=== PATIENT | female | born 1950 | race Caucasian/White ===

== ENCOUNTER 2023-09-30 13:00 | Outpatient (CLI) | payer OTHER ==
[2023-09-30 14:29] LABS: #Eosinphils 0.1 10x3/uL (0.0-0.5); #Monocytes 0.6 10x3/uL (0.0-1.1); #Neutrophils 3.8 10x3/uL (1.5-8.4); %Basophils 0.6 % (0.0-2.0); %Eosinophils 1.9 % (0.0-6.0); %Lymphocytes 32.5 % (18.0-47.0); %Monocytes 9.1 % (0.0-10.0); %Neutrophils 55.6 % (40.0-75.0); Hematocrit 37.5 % (34.9-44.5); Hemoglobin 12.2 g/dL (12.0-15.5); Mean Corpuscular HGB CONC 32.5 g/dL (32.0-36.0); Mean Corpuscular Hemoglobin 29.4 pg (27.0-33.0); Mean Corpuscular Volume 90.4 fl (81.6-98.3); Mean Platelet Volume 10.4 fl (7.4-10.4); Platelet Count 240 10x3/uL (150-450); RBC Distribution Width 14.5 % (11.5-14.5); Red Blood Cell (RBC) Count 4.15 10x6/uL (3.90-5.03); White Blood Cell (WBC) Count 6.7 10x3/uL (3.5-10.5)
[2023-09-30 14:39] LABS: ALT (SGPT) 14 U/L (8-55); AST (SGOT) 20 U/L (5-34); Albumin 4.4 g/dL (3.4-4.8); Alkaline Phosphatase 69 U/L (40-110); Anion Gap 11 mmol/L (10-20); BUN (Urea Nitrogen) 18 mg/dL (9.8-20.1); Bilirubin, Total 0.3 mg/dL (0.2-1.2); Calc. Creatinine Clearance 0 mL/min (70-130); Calcium 8.9 mg/dL (7.8-10.44); Carbon Dioxide 25 mmol/L (23-31); Chloride 108 mmol/L (98-107); Estimated GFR 85; Globulin 2.5 g/dL (2.4-3.5); Glucose 122 mg/dL (83-110); Potassium 3.6 mmol/L (3.5-5.1); Protein, Total 6.9 g/dL (5.8-8.1); Sodium 140 mmol/L (136-145)
== END 2023-09-30 13:01 | disposition home or self-care (01) ==
LOC: LABBT 13:00
PROVIDERS: ATTEND Surgery
DX: Z01.818 Encounter for other preprocedural examination (principal); K21.9 Gastro-esophageal reflux disease without esophagitis; K44.9 Diaphragmatic hernia without obstruction or gangrene
CPT/HCPCS: 80053; 85025; 93005; 93010

== ENCOUNTER 2023-10-28 10:28 | Inpatient (IN) | payer OTHER ==
[2023-09-30 13:56] VITALS: BMI 20.5
[2023-10-28] MEDS ORDERED: Bupivacaine 0.25% HCL 30 ML VIAL ONE (13:08)
[2023-10-28] MEDS ORDERED: EPINEPHrine 1 MG/ML VIAL ONE (13:08)
[2023-10-28] MEDS ORDERED: Sodium Chloride 0.9% 100 ML ONE (13:32)
[2023-10-28] MEDS ORDERED: CEFAZOLIN 2 GM VIAL ONE (13:32)
[2023-10-28] MEDS ORDERED: fentaNYL PF 100 MCG/2 ML SYRINGE ONE (13:35)
[2023-10-28] MEDS ORDERED: Rocuronium Bromide 10 MG/ML (10ML VIAL) ONE (13:36)
[2023-10-28] MEDS ORDERED: Lidocaine 1% PF 5 ML VIAL ONE (13:36)
[2023-10-28] MEDS ORDERED: PROPOFOL 20 ML ONE ×2 (13:36→13:47)
[2023-10-28] MEDS ORDERED: Dexamethasone 4 mg/ml Vial ONE (14:04)
[2023-10-28] MEDS ORDERED: ePHEDrine Sulfate 50 MG/10 ML VIAL ONE (14:06)
[2023-10-28] MEDS ORDERED: SUGAMMADEX SODIUM 200 MG/2 ML VIAL ONE (15:28)
[2023-10-28] MEDS ORDERED: Ondansetron PF 4 MG/2 ML Vial ONE ×2 (15:30→18:27)
[2023-10-28] MEDS ORDERED: diphenhydrAMINE 50 MG/ML VIAL IVP PRN (15:49)
[2023-10-28] MEDS ORDERED: Promethazine HCl 25 MG/ML VIAL IM PRN ×2 (15:49→15:50)
[2023-10-28] MEDS ORDERED: hydrALAZINE 20 MG/ML VIAL SLOW IVP PRN (15:49)
[2023-10-28] MEDS ORDERED: Ondansetron PF 4 MG/2 ML Vial IVP PRN (15:49)
[2023-10-28] MEDS ORDERED: fentaNYL 50 mcg/mL 1 mL Vial ONE ×2 (15:49→16:54)
[2023-10-28] MEDS ORDERED: Ipratropium/Albuterol 3 ML NEB NEB PRN (15:49)
[2023-10-28] MEDS ORDERED: Glucagon 1 MG/ML KIT IM PRN (15:49)
[2023-10-28] MEDS ORDERED: Hydrocodone-Acetamin 15 ML UDCUP PO PRN (15:49)
[2023-10-28] MEDS ORDERED: Dextrose 50% Abboject 50 ML SYRINGE SLOW IVP PRN (15:49)
[2023-10-28] MEDS ORDERED: Dextrose 5% in Water 1,000 ML IV PRN (15:49)
[2023-10-28] MEDS ORDERED: Ondansetron HCl/PF 4 MG/2 ML Vial IVP PRN (15:50)
[2023-10-28] MEDS ORDERED: HYDROmorphone 0.5 MG/0.5 ML SYRINGE ONE ×2 (16:08→16:18)
[2023-10-28] MEDS ORDERED: Naloxone HCl 0.4 mg/ml Vial IV PRN (17:00)
[2023-10-28] MEDS ORDERED: diphenhydrAMINE 25 MG CAP PO PRN (17:00)
[2023-10-28] MEDS ORDERED: Fentanyl CADD 100 ML IVPB SCH (17:00)
[2023-10-28] MEDS ORDERED: diphenhydrAMINE 50 MG/ML VIAL IM/IV PRN (17:00)
[2023-10-28] MEDS ORDERED: D5 1/2 NS w/20 mEq KCL 1,000 ML ONE (17:28)
[2023-10-28] MEDS: CEFAZOLIN 2 GM in Sodium Chloride 0.9% 100 ML IVPB SCH (21:54)
[2023-10-28] MEDS: D5 1/2 NS w/20 mEq KCL 1,000 ML IV SCH (21:55)
[2023-10-28] MEDS: FLU VACC QS2023(65UP)/MF59C/PF 60 MCG/0.5 ML SYRINGE IM ONE (23:03)
[2023-10-28] MEDS: Ondansetron PF 4 MG/2 ML Vial IVP PRN (23:59)
[2023-10-29] MEDS: Promethazine HCl 25 MG/ML VIAL IM PRN (02:54)
[2023-10-29 04:11] LABS: #Monocytes 0.7 thou/uL (0.11-0.59); #Neutrophils 8.3 thou/uL (1.40-6.50); %Basophils 0.1 % (0.0-1.0); %Lymphocytes 8.2 % (21.0-51.0); %Neutrophils 84.3 % (42.0-75.0); Hematocrit 36.3 % (36.0-47.0); Hemoglobin 11.5 g/dL (12.0-16.0); Mean Corpuscular HGB CONC 31.7 g/dL (32.0-36.0); Mean Corpuscular Hemoglobin 28.4 pg (27.0-31.0); Mean Corpuscular Volume 89.6 fl (78.0-98.0); Mean Platelet Volume 10.4 fL (7.4-10.4); Platelet Count 212 10x3/uL (130-400); RBC Distribution Width 15.1 % (11.5-14.5); Red Blood Cell (RBC) Count 4.05 mill/uL (4.20-5.40); White Blood Cell (WBC) Count 9.8 10x3/uL (4.8-10.8)
[2023-10-29 04:49] LABS: Anion Gap 15 mmol/L (10-20); BUN (Urea Nitrogen) 13 mg/dL (9.8-20.1); Calc. Creatinine Clearance 57 mL/min (70-130); Calcium 8.5 mg/dL (7.8-10.44); Carbon Dioxide 23 mmol/L (23-31); Chloride 101 mmol/L (98-107); Estimated GFR 91; Glucose 169 mg/dL (83-110); Potassium 3.9 mmol/L (3.5-5.1); Sodium 135 mmol/L (136-145)
[2023-10-29] MEDS: Enoxaparin 40 MG (0.4 mL) SYRINGE SC SCH (08:27)
[2023-10-29] MEDS: Pantoprazole 40 MG VIAL IVP SCH (08:28)
[2023-10-30] MEDS: Hydrocodone-Acetamin 15 ML UDCUP PO PRN (11:19)
[2023-10-30 11:58] VITALS: BP 149/94; TEMP 99.1
== END 2023-10-30 14:29 | disposition home or self-care (01) | DRG 328 ==
LOC: SDC 10:28 → SURG A 15:50
PROVIDERS: ADMIT Surgery; ATTEND Surgery
PROC: 0BUT4JZ Supplement Diaphragm with Synthetic Substitute, Percutaneous Endoscopic Approach (ICD-10-PCS; principal; 2023-10-28)
PROC: 8E0W4CZ Robotic Assisted Procedure of Trunk Region, Percutaneous Endoscopic Approach (ICD-10-PCS; 2023-10-28)
PROC: 3E033XZ Introduction of Vasopressor into Peripheral Vein, Percutaneous Approach (ICD-10-PCS; 2023-10-28)
DX: K21.9 Gastro-esophageal reflux disease without esophagitis (principal); K44.9 Diaphragmatic hernia without obstruction or gangrene; J44.9 Chronic obstructive pulmonary disease, unspecified; I10 Essential (primary) hypertension; E78.5 Hyperlipidemia, unspecified; F32.A Depression, unspecified; Z90.89 Acquired absence of other organs; Z82.49 Family history of ischemic heart disease and other diseases of the circulatory system
CPT/HCPCS: 36415; 80048; 85025; 94760; C1781; C9113; J0171; J0665; J1100; J1170; J1650; J2405; J2550; J2704; J3010; J3480; J3490